=== PATIENT | female | born 1985 | race Caucasian/White ===

== ENCOUNTER 2016-08-18 14:16 | Emergency (ER) | payer SELFPAY ==
[2016-08-18 14:23] VITALS: BP 118/79
[2016-08-18] MEDS ORDERED: NORCO 5/325 PO ONE (17:21)
[2016-08-18] MEDS ORDERED: MOTRIN PO ONE (17:21)
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
== END 2016-08-18 18:06 | disposition home or self-care (01) ==
LOC: ED 14:16
DX: M79.1 Myalgia (principal); Y08.89XA Assault by other specified means, initial encounter; Y93.9 Activity, unspecified; Y92.9 Unspecified place or not applicable; Y99.9 Unspecified external cause status
CPT/HCPCS: 99282